=== PATIENT | female | born 1980 ===

== ENCOUNTER → 2021-03-28 12:34 | Outpatient (CLI) | payer OTHER, SELFPAY ==
[2021-03-28 16:33] LABS: COVID19 -Nasal RAPID Negative (Negative)
== END ==
PROVIDERS: Referring Provider Family Medicine Sleep Medicine; Visit Provider Family Medicine Sleep Medicine
DX: Z20.822 Contact with and (suspected) exposure to COVID-19 (principal)
CPT/HCPCS: 87635; C9803